=== PATIENT | male | born 1950 | race American Indian/Alaskan Native ===

== ENCOUNTER 2021-10-26 14:30 | Observation (INO) | payer MEDICARE ==
--- NOTE | 2021-10-26 14:43 | Emergency Department Report ---
ED Syncope HPI - General Stated Complaint: SYNCOPAL EPISODE Time Seen by Provider: 10/26/21 14:39 Source: patient, EMS - Related Data Allergies/Adverse Reactions: Allergies No Known Allergies Allergy (Verified 10/26/21 14:46) ED Review of Systems ROS: Stated complaint: SYNCOPAL EPISODE Other details as noted in HPI ED Course Vital Signs 10/26/21 10/26/21 14:38 14:59 Temperature 97.4 F L Pulse Rate 59 L 54 L Respiratory 20 16 Rate Blood Pressure 134/69 Blood Pressure 140/72 [Left] O2 Sat by Pulse 98 100 Oximetry - Consultations Consultation #1: 10/26/21 16:01 Dr. Sam Solis, (pt's PCP): ED Medical Decision Making - Lab Data Result diagrams: 10/26/21 14:54 10/26/21 14:54 - EKG Data -: EKG Interpreted by Me EKG shows normal: sinus rhythm Rate: bradycardia - EKG Data When compared to previous EKG there are: previous EKG unavailable Interpretation: no acute changes, nonspecific ST-T wave marilyn 10/26/21 14:42 's EKG interpreted by me: Ventricular rate 59 bpm. P waves are present and proceed every QRS complex. Intervals normal except patient has prolonged GA interval measuring 231 ms. Remainder of intervals normal. No ST segment depressions or elevations. Patient has T wave inversions in V6. No ectopy. No arrhythmia. Normal axis. Sinus bradycardia with first-degree AV block. Patient has no prior EKG availab le for comparison Per review of electronic health record - Radiology Data Radiology results: report reviewed - Medical Decision Making 71-year-old obese male with diabetes hypertension heart murmur depression anemia carcinoid tumor of colon brought [place] EMS [place] local airport [place] evaluation of syncope. Per EMSs report the patient was hypotensive and his heart rate was in the 30s. He was given normal saline and atropine prior to arrival. Patient arrived normotensive and heart rate was in the 50s. His mentation has remained normal and unremarkable and he has had no recurrent syncopal episodes since being in the emergency department. An extensive discussion with the patient's primary care doctor, Dr. Avelar. He advises the patient be admitted to the hospital service for overnight observation. Serum labs reviewed. Patient has elevated D-dimer. Fattening is 1.4 but patient has no documented prior baseline for comparison. CTA chest is negative for acute pulmonary embolism but it does demonstrate a left upper lobe infiltrate. Patient endorses having a persistent cough over the past several days. Will administer Rocephin and azithromycin. Patient has multiple comorbidities and is at risk for underlying arrhythmia or dysrhythmia. He will necessitate observation admission. The pt's care has been transferred over to the admitting hospitalist, Dr. Langston, for further management. Critical care attestation.: If time is entered above; I have spent that time in minutes in the direct care of this critically ill patient, excluding procedure time. ED Disposition Clinical Impression: Syncope and collapse Disposition: 09 ADMITTED INPATIENT Is pt being admited?: Yes Does the pt Need Aspirin: No Condition: Stable Instructions: Syncope (ED)
[2021-10-26] MEDS ORDERED: SODIUM CHLORIDE 0.9% 1000 ML 1,000 ML IV ONE (15:00)
--- NOTE | 2021-10-26 15:14 | XRay Report ---
XR chest 1V ap INDICATION / CLINICAL INFORMATION: altered mental status, bradycardia COMPARISON: None available. FINDINGS: SUPPORT DEVICES: None. HEART / MEDIASTINUM: No significant abnormality. LUNGS / PLEURA: Lungs are clear. Costophrenic sulci are sharp. No pneumothorax. ADDITIONAL FINDINGS: No significant additional findings. IMPRESSION: 1. No acute findings. Signer Name: Rashi Cason MD Signed: 10/26/2021 3:09 PM Workstation Name: [employer]
[2021-10-26 15:18] LABS: Basophils % (Auto) 0.5 % (0.0-1.8); Eosinophils % (Auto) 0.3 % (0.0-4.3); Hematocrit 38.1 % (35.5-45.6); Hemoglobin 12.6 gm/dl (11.8-15.2); Lymphocytes # (Auto) 0.7 K/mm3 (1.2-5.4); Lymphocytes % (Auto) 11.7 % (13.4-35.0); Mean Corpuscular HGB Conc 33 % (32-34); Mean Corpuscular Volume 79 fl (84-94); Monocytes # (Auto) 0.6 K/mm3 (0.0-0.8); Monocytes % (Auto) 9.4 % (0.0-7.3); Platelet Count 249 K/mm3 (140-440); Red Blood Count 4.81 M/mm3 (3.65-5.03); Red Cell Distribution Width 16.1 % (13.2-15.2)
[2021-10-26 15:38] LABS: Alanine Aminotransferase 27 units/L (7-56); Albumin 4.6 g/dL (3.9-5); BUN/Creatinine Ratio 12; Blood Urea Nitrogen 17 mg/dL (9-20); Calcium 9.7 mg/dL (8.4-10.2); Hemolysis Index 13
--- NOTE | 2021-10-26 16:39 | Cat Scan Report ---
CT head/brain wo con INDICATION: R frontal headache,trauma, s/p fall, syncope. TECHNIQUE: Routine CT head. All CT scans at this location are performed using CT dose reduction for A JEREMY by means of automated exposure control. COMPARISON: None. FINDINGS: Intracranial: Husain-white matter differentiation is maintained. No intracranial hemorrhage. No extra a xial collection. No hydrocephalus. No herniation. Sinuses: Paranasal sinuses and mastoid air cells are essentially clear. Orbits: Globes are intact. Calvarium: No acute fracture. IMPRESSION: 1. No acute intracranial abnormality. Signer Name: Rashi Cason MD Signed: 10/26/2021 4:35 PM Workstation Name: [id number]
[2021-10-26 17:25] LABS: Amphetamine Screen,Urine Negative; Benzodiazepines Screen,Urine Negative; Cannabinoid Screen,Urine Negative; Cocaine Screen,Urine Negative; Methadone Screen,Urine Negative; Opiate Screen,Urine Negative
--- NOTE | 2021-10-26 18:26 | Cat Scan Report ---
CTA CHEST WITH IV CONTRAST INDICATION: Syncope, elevated D-dimer, rule out acute pulmonar CONTRAST: 85 cc Omnipaque 350 IV COMPARISON: Portable chest x-ray today Three-plane MIP reconstructions were produced. All CT scans at this location are performed using CT d ose reduction for ALARA by means of automated exposure control. FINDINGS: Spinal stimulators are seen extending into the lower thoracic area. Significant axillary or chest wall abnormalities are seen. There appear to be right axillary surgical changes. Views of the upper abdomen show moderate fatty infiltration of the liver with mild enlargement though only partial ly visualized. Nodularity is seen in the left adrenal with the upper anterior aspect showing a nodule measuring 18 mm with internal density indeterminate at 30 Hounsfield units and a possible minimal no dule is seen more inferiorly measuring only a few millimeters. No mediastinal or hilar masses. No obvious endobronchial lesions. No pneumothorax or pneumomediastinu m. No pleural effusions. Lung macias show probable mild chronic changes. Scarring versus atelectasis is seen in the right lower lobe, probably chronic. In the lateral aspect of the right upper lobe with focal area of reticulonodular change is seen including tree-in-bud type appearance suggesting an acu te inflammatory/infectious infiltrate rather than chronic change. No areas of consolidation are seen. No infiltrates are seen on the left. No discrete pulmonary nodules or masses are noted. Aorta shows no aneurysmal dilatation or evidence of dissection. Good opacification of pulmonary arterial system. No evidence of pulmonary thromboembolism. IMPRESSION: 1. No evidence of pulmonary thromboembolism 2. Focal interstitial infiltrate in the right upper lobe may represent acute interstitial pneumonitis though could include atypical etiology. Recommend follow-up and clinical correlation. 3. Left adrenal nodularity, indeterminate, recommend follow-up 4. Moderate fatty infiltration of the liver with hepatomegaly Signer Name: Jama Degroot MD Signed: 10/26/2021 6:22 PM Workstation Name: [email or web address]
[2021-10-26] MEDS ORDERED: HYDROmorphone 0.5 MG/0.5 ML INJ IV PRN (20:46)
[2021-10-26] MEDS ORDERED: ACETAMINOPHEN 325 MG TAB PO PRN (20:46)
[2021-10-26] MEDS ORDERED: oxyCODONE /ACETAMINOPHEN 5-325MG TAB PO PRN (20:46)
[2021-10-26] MEDS ORDERED: ALBUTEROL 2.5 MG/3 ML NEBU IH PRN (20:46)
[2021-10-26] MEDS ORDERED: ONDANSETRON 4 MG/2 ML INJ IV PRN (20:46)
--- NOTE | 2021-10-26 20:53 | History and Physical Report ---
History of Present Illness Chief complaint: I have been feeling weak and I just passed out today History of present illness: 71 YO Male with Obesity, Carcinoid Tumor presents ED for evaluation. Patient reports "I have been feeling weak and I just passed out today". Patient knowledges generalized weakness over the past 1 week with persistent symptoms over the same timeframe. Patient knowledges decreased exercise tolerance, dyspnea on exertion as well as dyspnea at rest. Patient states that [place] the airport and [place] lost consciousness. EMS was notified and upon arrival the patient was found to be in distress with a systolic blood pressure in the 70s and a heart rate in the 30s. Patient treated with atropine and subsequent transported to [facility] for further care and evaluation of the afor ementioned symptoms. The patient was seen and evaluated in the emergency department. All lab and imaging studies reviewed. Patient found to have clinical symptoms consistent with diastolic CHF complicated by syncope, as well as heart block and suspected sick sinus syndrome. Cardiology team consulted in ED. Patient denies fever, chills, chest pain, palpitation, adductive cough, skin rash, recent contact, known exposure to COVID-19. No prior admission for review. No medication listed at time of admission for reconciliation. Advanced care planning conducted in ED. Echocardiogram ordered and pending at time of admission. Past History Past Medical History: cancer, other (See HPI) Past Surgical History: No surgical history, Other (Reviewed) Social history: . denies: smoking, alcohol abuse, prescription drug abuse Family history: diabetes, hypertension Medications and Allergies Allergies Allergy/AdvReac Type Severity Reaction Status Date / Time No Known Allergies Allergy Verified 10/26/21 14:46 Active Meds: Active Medications Acetaminophen (Acetaminophen 325 Mg Tab) 650 mg PO Q4H PRN PRN Reason: Pain MILD(1-3)/Fever >100.5/BALDERAS Albuterol (Albuterol 2.5 Mg/3 Ml Nebu) 2.5 mg IH Q4HRT PRN PRN Reason: Shortness Of Breath Hydromorphone HCl (Hydromorphone 0.5 Mg/0.5 Ml Inj) 0.25 mg IV Q13H PRN PRN Reason: Pain, Moderate (4-6) Sodium Chloride (Nacl 0.9% 1000 Ml) 1,000 mls @ 42 mls/hr IV DIRECT FRE[facility]OM Ondansetron HCl (Ondansetron 4 Mg/2 Ml Inj) 4 mg IV Q8H PRN PRN Reason: Nausea And Vomiting Oxycodone/Acetaminophen (Oxycodone /Acetaminophen 5-325mg Tab) 1 tab PO Q16H HI N PRN Reason: Pain, Moderate (4-6) Sodium Chloride (Sodium Chloride 0.9% 10 Ml Flush Syringe) 10 ml IV BID FREEDOM Sodium Chloride (Sodium Chloride 0.9% 10 Ml Flush Syringe) 10 ml IV PRN PRN PRN Reason: LINE FLUSH Review of Systems Constitutional: weakness, no weight loss, no fever Ears, nose, mouth and throat: no ear pain, no nose pain Cardiovascular: dyspnea on exertion, decreased exercise tolerance, no chest pain Respiratory: no cough, no excessive sputum, no hemoptysis Gastrointestinal: no nausea, no vomiting, no change in bowel habits Genitourinary Male: no hematuria, no flank pain, no discharge, no urinary frequency, no nocturia Rectal: no pain, no incontinence, no bleeding Musculoskeletal: no neck stiffness, no neck pain, no shooting arm pain, no low back pain, no shooting leg pain Integumentary: no rash, no pruritis, no sores, no wounds, no jaundice Neurological: syncope, no head injury, no paralysis Psychiatric: no anxiety, no change in sleep habits, no sleep disturbances, no hypersomnia, no suicidal ideation Endocrine: no cold intolerance, no polyphagia, no polydipsia, no nocturia, no excessive sweating Hematologic/Lymphatic: no easy bleeding, no lymphadenopathy Allergic/Immunologic: no allergic rhinitis, no wheezing, no persistent infections Exam - Constitutional Vitals: Temp Pulse Resp BP Pulse Ox 97.4 F L 54 L 16 140/72 100 10/26/21 14:59 10/26/21 14:59 10/26/21 14:59 10/26/21 14:59 10/26/21 14:59 General appearance: Present: mild distress, obese - EENT Eyes: Present: PERRL ENT: hearing intact, clear oral mucosa - Neck Neck: Present: supple, normal ROM - Respiratory Respiratory effort: normal Respiratory: bilateral: CTA - Cardiovascular Rhythm: other (Bradycardia) Heart Sounds: Present: S1 & S2. Absent: rub, click - Extremities Extremities: pulses symmetrical, No edema Peripheral Pulses: within normal limits - Abdominal General gastrointestinal: Present: soft, non-tender, non-distended, normal bowel sounds Male genitourinary: Present: normal - Integumentary Integumentary: Present: clear, warm, dry - Musculoskeletal Musculoskeletal: gait normal, strength equal bilaterally - Psychiatric Psychiatric: appropriate mood/affect, intact judgment & insight - Neurologic Neurologic: CNII-XII intact, moves all extremities HEART Score - HEART Score Troponin: Troponin T < 0.010 ng/mL (0.00-0.029) 10/26/21 14:54 Results - Labs CBC & Chem 7: 10/26/21 14:54 10/26/21 14:54 Labs: Abnormal lab results 10/26/21 10/26/21 10/26/21 Range/Units 14:54 14:54 14:54 MCV 79 L (84-94) fl MCH 26 L (28-32) pg RDW 16.1 H (13.2-15.2) % Lymph % (Auto) 11.7 L (13.4-35.0) % Stevens % (Auto) 9.4 H (0.0-7.3) % Lymph # (Auto) 0.7 L (1.2-5.4) K/mm3 Seg Neutrophils % 78.1 H (40.0-70.0) % D-Dimer 387.84 H (0-234) ng/mlDDU Chloride 108.7 H (98-107) mmol/L Creatinine 1.4 H (0.8-1.3) mg/dL Glucose 116 H (75-100) mg/dL Total Protein 6.2 L (6.3-8.2) g/dL Assessment and Plan - Patient Problems (1) Diastolic CHF Current Visit: Yes Status: Acute Qualifiers: Heart failure chronicity: acute Qualified Code(s): I50.31 - Acute diastolic (congestive) heart failure Plan to address problem: Strict I/O, monitoring output shift, daily weight, afterload reduction and blood pressure control, BNP, thyroid panel, magnesium level. Echocardiogram ordered and pending at time of admission. Patient currently hypotensive and bradycardic at this time. Telemetry monitoring. (2) Sick sinus syndrome Current Visit: Yes Status: Acute Plan to address problem: Telemetry monitoring, supportive care, atropine at bedside. (3) Obesity (BMI 30.0-34.9) Current Visit: Yes Status: Acute Plan to address problem: Balanced diet, increase physical activity at discharge. (4) Syncope and collapse Current Visit: Yes Status: Acute Plan to address problem: Fall precautions, neuro check, supportive care. CT scan head without contrast. (5) DVT prophylaxis Current Visit: Yes Status: Acute Plan to address problem: SCDs bilateral lower extremities while in bed (6) Advance care planning Current Visit: Yes Status: Acute Plan to address problem: Disease education conducted, care plan discussed, diagnoses discussed, prognosis discussed, patient is full code. Patient acknowledges understanding agree with care plan, +30 minutes. (7) Preventative health care Current Visit: Yes Status: Acute Plan to address problem: Patient counseled regarding risk factor reduction, balanced diet, meal planning, weight reduction, outpatient follow-up with primary care physician for all age and risk factor appropriate screening test. +30 minutes.
[2021-10-26] MEDS ORDERED: SODIUM CHLORIDE 0.9% 1000 ML 1,000 ML IV SCH (21:00)
[2021-10-26] MEDS ORDERED: ATROPINE 0.1% (1 MG/10 ML) CARDIAC SYRINGE IV ONE (21:45)
[2021-10-26 22:46] LABS: Free T4 (Free Thyroxine) 1.11 ng/dL (0.76-1.46)
[2021-10-27] MEDS: hydrALAZINE 20 MG/1 ML INJ IV PRN ×2 (02:42→06:46)
[2021-10-27 06:00] LABS: BUN/Creatinine Ratio 10; Blood Urea Nitrogen 11 mg/dL (9-20); Calcium 9.4 mg/dL (8.4-10.2); Hemolysis Index 4
[2021-10-27] MEDS ORDERED: IBUPROFEN 800 MG TAB PO PRN (11:10)
[2021-10-27 11:28] VITALS: BP 167/81
[2021-10-27] MEDS ORDERED: amLODIPine 10 MG TAB PO SCH (12:00)
--- NOTE | 2021-10-27 12:13 | Consultation ---
History of Present Illness Consult date: 10/27/21 Requesting physician: NOAH SANDERS Consult reason: bradycardia, congestive heart failure, syncope History of present illness: Patient is a 71-year-old male with a past medical history of hypertension, hyper lipidemia, diabetes, cancer, who states that [place] while at the airport he had a syncopal episode yesterday. Patient reports that while in the airport he developed hot flashes felt disoriented and while walking to the bathroom passed out. Patient states he woke up on the floor. EMS was notified. And per documentation EMS found patient's with systolic blood pressure in 70s and heart rate of 30s. Patient was given atropine with improvement in heart rate and transported to the ED for further evaluation. At time of interview patient also reports that following the syncopal episode he had loss of control of bowels and urine and reports feeling weak following this episode. He states that he has had at least 4 or 5 prior episodes. Patient denies any chest pain, nausea, vomiting, diaphoresis, shortness of breath. Patient reports that he follows with a portfolio consultant in either [place]. He states that he had recent ischemic eval with stress test and cardiac cath this back to January. Patient is previously unknown to our practice. Cardiology is consulted for, CHF, moon ycardia, and syncope. Past History Past Medical History: cancer, other (See HPI) Past Surgical History: Other (Knee surgery, wrist surgery, bowel surgery) Social history: . denies: smoking, alcohol abuse, prescription drug abuse Family history: diabetes, hypertension Medications and Allergies Allergies Allergy/AdvReac Type Severity Reaction Status Date / Time No Known Allergies Allergy Verified 10/26/21 14:46 Home Medications Medication Instructions Recorded Confirmed Last Taken Type AtorvaSTATin [Lipitor] 20 mg PO QHS 10/27/21 10/27/[address] [Voltaren Dr] 75 mg PO BID 10/27/21 10/27/21 Unknown History Gabapentin [Neurontin] 300 mg PO TID 10/27/21 10/27/21 Unknown History Metoprolol [Lopressor] 25 mg PO DAILY 10/27/21 10/27/21 Unknown History Tamsulosin [Flomax] 0.4 mg PO QDAY 10/27/21 10/27/21 Unknown History Venlafaxine HCl [Effexor Xr] 150 mg PO DAILY 10/27/21 10/27/21 Unknown History amLODIPine [Norvasc] 10 mg PO DAILY 10/27/21 10/27/21 Unknown History hydrALAZINE [Apresoline] 25 mg PO BID 10/27/21 10/27/21 Unknown History metFORMIN [Glucophage] 500 mg PO QDAY 10/27/21 10/27/21 Unknown History Active Meds: Active Medications Acetaminophen (Acetaminophen 325 Mg Tab) 650 mg PO Q4H PRN PRN Reason: Pain MILD(1-3)/Fever >100.5/BALDERAS Albuterol (Albuterol 2.5 Mg/3 Ml Nebu) 2.5 mg IH Q4HRT PRN PRN Reason: Shortness Of Breath Amlodipine Besylate (Amlodipine 10 Mg Tab) 10 mg PO DAILY [facility] Last Admin: 10/27/21 11:40 Dose: 10 mg Atorvastatin Calcium (Atorvastatin 20 Mg Tab) 20 mg PO QHS [facility] Diclofenac Sodium (Diclofenac Dr 75 Mg Tab) 75 mg PO BID [facility] Gabapentin (Gabapentin 300 Mg Cap) 300 mg PO TID [facility] Hydralazine HCl (Hydralazine 20 Mg/1 Ml Inj) 10 mg IV Q4H PRN PRN Reason: Hypertension SBP > 160 Last Admin: 10/27/21 06:46 Dose: 10 mg Hydromorphone HCl (Hydromorphone 0.5 Mg/0.5 Ml Inj) 0.25 mg IV Q13H PRN PRN Reason: Pain, Moderate (4-6) Sodium Chloride (Nacl 0.9% 1000 Ml) 1,000 mls @ 42 mls/hr IV DIRECT [facility] Ibuprofen (Ibuprofen 800 Mg Tab) 800 mg PO Q8H PRN PRN Reason: Pain, Mild (1-3) Last Admin: 10/27/21 11:40 Dose: 800 mg Metoprolol Tartrate (Metoprolol Tartrate 25 Mg Tab) 25 mg PO DAILY [facility] Ondansetron HCl (Ondansetron 4 Mg/2 Ml Inj) 4 mg IV Q8H PRN PRN Reason: Nausea And Vomiting Oxycodone/Acetaminophen (Oxycodone /Acetaminophen 5-325mg Tab) 1 tab PO Q16H PRN PRN Reason: Pain, Moderate (4-6) Sodium Chloride (Sodium Chloride 0.9% 10 Ml Flush Syringe) 10 ml IV BID [facility] Last Admin: 10/27/21 09:15 Dose: Not Given Sodium Chloride (Sodium Chloride 0.9% 10 Ml Flush Syringe) 10 ml IV PRN PRN PRN Reason: LINE FLUSH Review of Systems Constitutional: no weight loss, no weight gain Cardiovascular: lightheadedness, no chest pain, no orthopnea, no palpitations, no edema Respiratory: no shortness of breath, no dyspnea on exertion Gastrointestinal: other (Incontinence of bowel and urine), no abdominal pain, no nausea, no vomiting Musculoskeletal: no neck stiffness, no neck pain Integumentary: no rash, no pruritis, no redness Neurological: weakness, syncope, no head injury, no transient paralysis Psychiatric: no anxiety, no memory loss, no change in sleep habits Endocrine: no cold intolerance, no heat intolerance Hematologic/Lymphatic: no easy bruising, no easy bleeding Physical Examination Vital Signs Resp Pulse Ox 19 97 10/26/21 14:33 10/26/21 14:33 General appearance: no acute distress Neck: Positive: trachea midline Cardiac: Positive: Reg Rate and Rhythm Lungs: Positive: clear to auscultation, Normal Breath Sounds Neuro: Positive: Grossly Intact Abdomen: Positive: Soft, Active Bowel Sounds Skin: Negative: Rash, Suspicious Lesions, Ulceration Extremities: Present: upper extr. pulses. Absent: edema Results 10/26/21 14:54 10/27/21 04:59 Cardiac Enzymes 10/26/21 Range/Units 14:54 AST 20 (5-40) units/L CBC 10/26/21 Range/Units 14:54 WBC 6.0 (4.5-11.0) K/mm3 RBC 4.81 (3.65-5.03) M/mm3 Hgb 12.6 (11.8-15.2) gm/dl Hct 38.1 (35.5-45.6) % Plt Count 249 (140-440) K/mm3 Lymph # (Auto) 0.7 L (1.2-5.4) K/mm3 [place] # (Auto) 0.6 (0.0-0.8) K/mm3 Eos # (Auto) 0.0 (0.0-0.4) K/mm3 Baso # (Auto) 0.0 (0.0-0.1) K/mm3 Comprehensive Metabolic Panel 10/26/21 10/27/21 Range/Units 14:54 04:59 Sodium 144 142 (137-145) mmol/L Potassium 4.2 3.7 (3.6-5.0) mmol/L Chloride 108.7 H 105.9 (98-107) mmol/L Carbon Dioxide 23 24 (22-30) mmol/L BUN 17 11 (9-20) mg/dL Creatinine 1.4 H 1.1 (0.8-1.3) mg/dL Glucose 116 H 191 H (75-100) mg/dL Calcium 9.7 9.4 (8.4-10.2) mg/dL AST 20 (5-40) units/L ALT 27 (7-56) units/L Alkaline Phosphatase 61 (35-129) units/L Total Protein 6.2 L (6.3-8.2) g/dL Albumin 4.6 (3.9-5) g/dL - Imaging and Cardiology Echo: report reviewed EKG interpretations - Telemetry EKG Rhythm: Sinus Rhythm - EKG Sinus rhythms and dysrhythmias: sinus rhythm Repolarization changes or abnormalities: nonspecific abnormality, ST segment, and/or T wave Assessment and Plan Patient is a 71-year-old male with a past medical history of hypertension, hyperlipidemia, diabetes, cancer, who states that [place] while at the airport he had a syncopal episode yesterday. Syncope Bradycardia? Seizure? Hypertension Diabetes Hyperlipidemia History of cancer Obesity Echo 10/26/2021-EF 55 to 60%. Mild concentric LVH. Mild diastolic dysfunction is present impaired relaxation pattern. Right ventricle is normal in size and right ventricular systolic function is normal. Left atrium is mildly dilated. Trace tricuspid regurgitation Plan: EKG shows sinus bradycardia 59 first-degree block and nonspecific T abnormalities. No acute ischemic changes. Troponin negative x1. Patient denies any complaints of chest pain. Repeat cardiac enzymes pending Patient does report having recent ischemic eval this past January with his primary portfolio consultant Telemetry reviewed patient heart rate trending sinus 80s to 90s with no events on monitor. Patient denies any further syncopal episodes BP has been stable with no episodes of hypotensive. Orthostatic vitals pending BNP is negative, patient denies any complaints of shortness of breath or dyspnea on exertion, and patient appears euvolemic on exam with clear lungs auscultation and no bilateral lower extremity edema. Patient is not clinically in heart failure Patient reports becoming incontinent of bowels and urine during syncopal episode. Primary team may wish to consider neuro consult to rule out seizure Resume outpatient medications metoprolol tartrate 25mg PO QD, Atrovastatin 20mg PO QHS, amlodipine 10mg PO QD Cardiac status appears otherwise stable. Patient follow with her primary portfolio consultant in 1 to 2 weeks after discharge Patient seen in conjunction with Dr. Cho who agrees with plan of care - Patient Problems (1) Hypertension Current Visit: Yes Status: Acute (2) Diabetes Current Visit: Yes Status: Acute (3) Hyperlipidemia Current Visit: Yes Status: Acute (4) Obesity (BMI 30.0-34.9) Current Visit: Yes Status: Acute (5) Syncope and collapse Current Visit: Yes Status: Acute
--- NOTE | 2021-10-27 12:43 | Discharge Summary ---
Providers - Providers Date of Admission: 10/26/21 20:46 Date of discharge: 10/27/21 Attending physician: JORGE FERRERA MD 10/26/21 20:51 Consult to Physician [CONS] Routine Comment: Consulting Provider: JAMES MORALES Physician Instructions: Reason For Exam: chf/syncope/bradycardia Primary care physician: SCREED PERSON Hospitalization Reason for admission: syncope Condition: Stable Hospital course: 71-year-old male with a history of obesity and carcinoid tumor who presented aft er syncopal episodes. He was found to be hypotensive and bradycardic by EMS. Cardiology was consulted and he was admitted for further evaluation. CT of the head showed no acute intracranial abnormality. CT angiogram of the chest showed no evidence of pulmonary thromboembolism. Echocardiogram revealed normal ejection fraction with mild diastolic dysfunction. Per cardiology, there were no events observed on telemetry. Once stable patient was discharged home with . Disposition: 01 HOME / SELF CARE / HOMELESS Final Discharge Diagnosis (Prints w/discharge instructions): Syncope, likely neurogenic. Diastolic heart failure, not in acute exacerbation. Sick sinus syndrome ruled out. Obesity. Hypertension. Type 2 diabetes, non-insulin- dependent Time spent for discharge: 25 minutes Core Measure Documentation - Palliative Care Palliative Care/ Comfort Measures: Not Applicable - Core Measures Any of the following diagnoses?: heart failure - Heart Failure Discharge Requirements DIMPLE/ARB for LVSD if EF <40%: Not Applicable Beta jody at discharge: Yes Exam - Physical Exam Narrative exam: GENERAL: Well-developed well-nourished. In no acute distress. HEENT: Normocephalic. Atraumatic. NECK: Supple. CHEST/LUNGS: CTAB on room air HEART/CARDIOVASCULAR: RRR. No murmur, rubs or gallops appreciated. ABDOMEN: +BS. NT/ND. SKIN: No rashes noted. NEURO: No focal motor deficit. Follows all commands and is ambulatory. MUSCULOSKELETAL: No joint effusion EXTREMITIES: No cyanosis, clubbing or edema. PSYCH: Cooperative. - Constitutional Vitals: Temp Pulse Resp BP Pulse Ox 97.8 F 76 18 167/81 99 10/27/21 11:08 10/27/21 11:08 10/27/21 11:08 10/27/21 11:08 10/27/21 11:08 Plan Care Plan Goals: Please follow-up with your primary care provider. Have them to refer you to a neurologist for further management. We would like you to refrain from driving, operating heavy machinery and swimming until you have been seen and cleared by your PCP/neurologist. Please follow-up with your primary weapons engineer in the next 1-2 weeks. Your echocardiogram did not show any significant abnormalities. Follow up with: PRIMARY CARE, [Primary Care Provider] - 3-5 Days
[2021-10-27] MEDS ORDERED: GABAPENTIN 300 MG CAP PO SCH (14:00)
--- NOTE | 2021-10-27 14:08 | Electrocardiograph Report ---
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
[2021-10-27] MEDS ORDERED: DICLOFENAC DR 75 MG TAB PO SCH (22:00)
[2021-10-28] MEDS ORDERED: METOPROLOL TARTRATE 25 MG TAB PO SCH (10:00)
== END 2021-10-27 14:03 | disposition home or self-care (01) ==
LOC: ED 14:30 → 4A 20:46 → INTOOBSV 20:46
PROVIDERS: ADMIT Internal Medicine; ATTEND Student in an Organized Health Care Education/Training Program
DX: I11.0 Hypertensive heart disease with heart failure (principal); I50.31 Acute diastolic (congestive) heart failure; E11.9 Type 2 diabetes mellitus without complications; I49.5 Sick sinus syndrome; E66.9 Obesity, unspecified; R55 Syncope and collapse; Z68.34 Body mass index [BMI] 34.0-34.9, adult; Z85.9 Personal history of malignant neoplasm, unspecified; Z79.899 Other long term (current) drug therapy; Z98.890 Other specified postprocedural states
CPT/HCPCS: 36415; 70450; 71045; 71275; 80048; 80053; 80307; 83735; 83880; 84439; 84443; 84484; 85025; 85379; 93005; 96361; 96374; 96376; 99285; C8929; G0378; J0360; J7030; Q9967; 93306